=== PATIENT | female | born 1960 | race Caucasian/White ===

== ENCOUNTER 2018-07-18 17:39 | Emergency (ER) | payer MEDICAID ==
[~2018-07-18] VITALS: Ht 162.6 cm; Wt 63.5 kg
[2018-07-18 17:43] VITALS: BP_SYST 158
[2018-07-18 20:22] VITALS: BP_SYST 145
== END 2018-07-18 20:22 | disposition home or self-care (01) ==
LOC: SED 17:39
DX: S62.617A Displaced fracture of proximal phalanx of left little finger, initial encounter for closed fracture (principal); I10 Essential (primary) hypertension; Z88.2 Allergy status to sulfonamides; Z88.6 Allergy status to analgesic agent; X58.XXXA Exposure to other specified factors, initial encounter; Y93.89 Activity, other specified; Y92.89 Other specified places as the place of occurrence of the external cause; Y99.8 Other external cause status
CPT/HCPCS: 99283

== ENCOUNTER 2019-01-10 01:04 | Emergency (ER) | payer MEDICAID ==
[~2019-01-10] VITALS: Ht 162.6 cm; Wt 59.0 kg
[2019-01-10 01:20] VITALS: BP_SYST 169
[2019-01-10 01:39] LABS: BASOPHILS % (AUTO) 0.5 % (0.0-2.0); EOSINOPHILS % (AUTO) 3.8 % (0.0-4.0); HEMATOCRIT 44.9 % (36-48); HEMOGLOBIN 15.1 g/dL (12.0-16.0); MEAN CORPUSCULAR HEMOGLOBIN 34 pg (27-31); MEAN CORPUSCULAR HGB CONC 34 % (32-36); MEAN CORPUSCULAR VOLUME 100 fL (79.0-98.0); MONOCYTES % (AUTO) 9.3 % (1.7-9.3); NEUTROPHILS % (AUTO) 56.6 % (40.0-70.0); PLATELET COUNT (AUTO) 138 K/uL (130-430); RED BLOOD CELL COUNT(AUTO) 4.49 MIL/uL (4.2-6.2); RED CELL DISTRIBUTION WIDTH 14.5 % (9.0-15.0)
[2019-01-10 01:57] LABS: CALCIUM 9.5 mg/dL (8.4-11.0); CREATININE 0.98 mg/dL (0.55-1.30); POTASSIUM 3.3 mmol/L (3.5-5.1)
[2019-01-10] MEDS ORDERED: MORPHINE 4 MG/ML INJ. SYRINGE IM ONE (02:00)
[2019-01-10] MEDS: ACETAMINOPHEN 325 MG TABLET PO ONE (02:02)
[2019-01-10 02:03] LABS: TOTAL BILIRUBIN 0.6 mg/dL (0.0-1.0)
[2019-01-10 02:41] VITALS: BP_SYST 127
== END 2019-01-10 02:41 | disposition home or self-care (01) ==
LOC: SED 01:04
DX: I10 Essential (primary) hypertension (principal); Z88.2 Allergy status to sulfonamides; Z88.8 Allergy status to other drugs, medicaments and biological substances
CPT/HCPCS: 36415; 70450-TC; 71045; 80053; 84484; 85025; 93005; 99284; J2270

== ENCOUNTER 2020-08-04 12:42 | Emergency (ER) | payer MEDICAID ==
[~2020-08-04] VITALS: Ht 162.6 cm; Wt 77.1 kg
[2020-08-04 12:46] VITALS: BP_SYST 132
[2020-08-04 14:03] VITALS: BP_SYST 132
== END 2020-08-04 14:07 | disposition home or self-care (01) ==
LOC: SED 12:42
DX: I73.9 Peripheral vascular disease, unspecified (principal); I10 Essential (primary) hypertension; Z88.8 Allergy status to other drugs, medicaments and biological substances
CPT/HCPCS: 93970; 99284